=== PATIENT | female | born 1995 | race Caucasian/White ===

== ENCOUNTER 2019-08-18 12:08 | Emergency (ER) | payer MEDICAID ==
[~2019-08-18] VITALS: Ht 167.6 cm; Wt 70.4 kg
[2019-08-18 12:18] VITALS: BP 117/74; Ht 167.6 cm; Wt 70.4 kg
== END 2019-08-18 13:39 | disposition home or self-care (01) ==
LOC: ED 12:08
DX: J20.8 Acute bronchitis due to other specified organisms (principal); H57.89 Other specified disorders of eye and adnexa
CPT/HCPCS: Q0092